=== PATIENT | male | born 1950 | race Caucasian/White ===

== ENCOUNTER 2016-12-24 23:35 | Emergency (ER) | payer SELFPAY ==
--- NOTE | 2016-12-25 01:43 | ED NURSING NOTES ---
Clinical Report - Nurses [facility] [address] [place] [address] 12/24/2016 23:35 Patient: JAMES BEARD TRIAGE Triage time 23:50 Dec 24 2016. Acuity: LEVEL 3. Chief Complaint: CHEST PAIN. --23:51 Micha Catalan R.N. 23:51 12/24/16. BP: 95/49. HR: 51. RR: 18. O2 saturation: 98%. Temp: 97.7 F. Pain level now 07/22. --23:51 Micha Catalan R.N. Weight: 99.7 kg stated. Height/Length: 68 inches Per Patient. BMI: 33.4. --23:51 Micha Catalan R.N. Medications None. --23:50 Micha Catalan R.N. Allergies No Known Drug Allergy. --23:50 Micha Catalan R.N. History Arrived by private vehicle. This started just prior to arrival. Treatment [employer] REPRESENTATIVE: Took ibuprofen. SOCIAL HX: Former smoker. No alcohol use or drug use. --23:51 Micha Catalan R.N. PROBLEMS: Atypical Chest Pain. Anxiety Reaction. Gout. Hypertension. --23:50 Micha Catalan R.N. ADDITIONAL SURGERIES: Appendectomy. Shoulder Surgery. --23:50 Micha Catalan R.N. Interventions ID band on patient. To treatment room. --23:51 Micha Catalan R.N. PHYSICAL ASSESSMENT GENERAL / NEURO / PSYCH: Alert. Oriented X 4. Appears in pain. RESPIRATORY: Respirations not labored. CVS: Normal sinus rhythm noted. GI / : Abdominal tenderness. SKIN: Skin is warm and dry. --23:54 Micha Catalan R.N. NURSING PROGRESS NOTES Pulse oximeter placed on patient. Patient gowned. Call light placed in reach. Side rails up x 1. Bed placed in lowest position. --23:54 Micha Catalan R.N. EKG time: (2343). EKG was performed by a tech and shown to the ED physician. --23:55 Christine Morales 00:18 12/25/2016 Site #1 started via IV in the left antecubital space with an 18g angiocath; one attempt. Blood drawn: rainbow set. Labeled in the presence of the patient. Saline lock flushed with saline. --00:18 Micha Catalan R.N. 00:18 12/25/2016 Started bag #1 1000 mL IV Fluids IV NS (Saline); bolus of 1000 mL wide open via site #1. Allergies verified and confirmed 5 rights. IV patency established. IV site checked: no pain, redness, or swelling. IV flushed thoroughly pre- and post-medication administration. Completed per protocol. --00:18 Micha Catalan R.N. 00:18 12/25/2016 Zofran (Ondansetron HCl) IVP 4 mg given over 2 minute(s) via site #1. Allergies verified and confirmed 5 rights. IV patency established. IV site checked: no pain, redness, or swelling. IV flushed thoroughly pre- and post-medication administration. IVP given by RN. --00:18 Micha Catalan R.N. 00:40 12/25/16. BP: 104/60. HR: 52. O2 saturation: 98%. --00:40 Micha Catalan R.N. 01:13 12/25/16. BP: 102/58. HR: 60. O2 saturation: 100%. --01:13 Micha Catalan R.N. ( pt reports significant decrease in pain in nausea). --01:19 Micha Catalan R.N. 01:27 12/25/2016 IV Fluids IV NS Discontinued: bag #1 infused. Total amount infused: 1000 mL. IV patency established. IV site checked: no pain, redness, or swelling. IV flushed thoroughly. --01:27 Micha Catalan R.N. DISPOSITION / DISCHARGE 00:04 12/25/16. BP: 145/60. HR: 82. RR: 18. O2 saturation: 97%. Temp: 98 F. Pain level now 0/10. --00:06 Micha Catalan R.N. <<STRICKEN ENTRY-- Departure time: 00:06 Dec 25 2016. No learning barriers present. Discharge instructions provided and reviewed with the patient. Reviewed medication(s) side effects information. Patient verbalized understanding. Written instructions provided in Canadian. The patient was discharged by the physician. He was discharged home and accompanied by family. He left the Emergency Department ambulatory and via private vehicle. Family member driving. --00:06 Micha Catalan R.N. --END STRIKE>> Charted On Wrong Patient --00:06 Micha Catalan R.N. 01:53 12/25/16. BP: 103/59. HR: 74. O2 saturation: 97%. --01:54 Micha Catalan R.N. 01:54 12/25/16. RR: 18. Temp: 98 F. Pain level now 0/10. --01:54 Micha Catalan R.N. 01:55 12/25/2016 Site #1 removed upon discharge. Bandage applied. --01:55 Micha Catalan R.N. Departure time: 01:56 Dec 25 2016. Condition at departure: improved. No learning barriers present. Discharge instructions provided and reviewed with the patient. Reviewed medication(s) information. Patient verbalized understanding. Written instructions provided in Canadian. The patient was discharged by the physician. He was discharged home and accompanied by family. He left the Emergency Department ambulatory and via private vehicle. Family member driving. --01:56 Micha Catalan R.N. Locked/Released at 12/25/2016 5:08 by Micha Catalan R.N.
--- NOTE | 2016-12-25 01:43 | ED ORDER SUMMARY ---
..... Patient: JAMES BEARD OrderSheet [facility] VisitID: [id number] [place] [address] 66y, M Registration Date/Time: 12/24/2016 ORDER SHEET Weight: 99.7 kg (stated) Allergies: No Known Drug Allergy GENERAL ORDERS: CBC w Diff Urgent (23:54 12/24/2016 DBeyer R.N. per protocol) (Ack 23:55 SRedmond) (0:09 Leatha Caro) (Cancelled: Physician Order0:09 Leatha Caro) CMP Urgent (23:54 12/24/2016 DBeyer R.N. per protocol) (Ack 23:55 SRedmond) (0:09 Amanuelr ) (Cancelled: Physician Order0:10 Amanuelr ) Cardiac Panel Stat (:12/24/2016 DBeyer R.N. per protocol) (Ack 23:55 SRedmond) (1:04 ALawrence ER Tech1) EKG - ER Stat (23:54 12/24/2016 DBeyer R.N. per protocol) (23:55 SRedmond) BNP Urgent (00:12/25/2016 Leatha Caro) (Ack 0:16 SRedmond) (1:04 ALawrence ER Tech1) MEDICATION ORDERS: IV FLUIDS: IV NS : initial bolus none -, then 1000 mL/hr for X1 (NOW) (00:12/25/2016 Leatha Caro) (0:18 DBeyer R.N.) Zofran IV 4 mg (NOW) (00:11 12/25/2016 Leatha Caro) (0:18 DBeyer R.N.) ORDER SHEET NOTES: [Electronically signed by Joao Olson Dr. (01:55 12/25/2016)] [Electronically signed by Micha Catalan R.N. (05:12/25/2016)] [Electronically locked/signed by Micha Catalan R.N. (05:12/25/2016)]
--- NOTE | 2016-12-25 01:43 | ED CLINICAL REPORT ---
Clinical Report - Physicians/Mid Levels [facility] [address] [place] [place] [address] 12/24/2016 23:35 Patient: JAMES BEARD Time Seen: 2347; initial patient contact. Arrived- By private vehicle. Historian- patient. HISTORY OF PRESENT ILLNESS Chief Complaint: ABDOMINAL PAIN. At its maximum, severity described as moderate. When seen in the E.D., severity described as moderate. Modifying factors. Not worsened by anything. Not relieved by anything. This started today and is still present. It is described as "pain". No radiation. It is described as located in the epigastric area and in the upper abdomen. The patient has had nausea. No vomiting or diarrhea. Similar symptoms previously: None. Recent medical care: Not recently seen/assessed. REVIEW OF SYSTEMS No constipation, hematemesis, difficulty with urination, pain with urination or fever. No chills. All systems otherwise negative, except as recorded above. PAST HISTORY Atypical Chest Pain. Anxiety Reaction. Gout. Hypertension. ADDITIONAL SURGERIES: Appendectomy. Shoulder Surgery. SOCIAL HISTORY Former smoker. No alcohol use or drug use. ADDITIONAL NOTES The nursing notes have been reviewed with agreement regarding the chief complaint, PMH and patient medications and allergies. PHYSICAL EXAM Vital Signs: 12/24/2016 23:51 BP: 95/49. HR: 51. RR: 18. O2 saturation: 98%. Temp: 97.7 F. Have been reviewed. Hypotensive. Bradycardic. Respiratory rate normal. Temperature normal. Oxygen saturation normal. Appearance: Alert. Oriented X3. No acute distress. Eyes: Eyes normal inspection. No scleral icterus or pale conjunctivae. ENT: Dry mucous membranes present. CVS: Bradycardia. Heart sounds normal. Rhythm normal. Respiratory: No respiratory distress. Breath sounds normal. Abdomen: Soft. Moderate tenderness diffusely with guarding present. No rebound tenderness or Rivas's sign present. Bowel sounds normal. No organomegaly. No mass. Back: Normal inspection. No CVA tenderness. Skin: Normal skin color. No rash. Extremities: No lower extremity edema. Neuro: Oriented X 3. LABS, X-RAYS, AND EKG EKG: EKG time: (2343). No acute process. No acute ischemia. Normal EKG. Normal sinus rhythm. Rate: 60. Normal P waves. Normal BOY. Normal QRS complex. Normal axis. Normal ST and T waves, QT and QTc. Prior EKG unavailable. The study has been interpreted contemporaneously by me. The study has been independently viewed by me. The EKG appears to be a good tracing. Interpretation time: 2343. Laboratory Tests: CBC w Diff: (MICHAEL: 12/24/2016 23:42) ( [facility] [place] 12/25/2016 00:16) Final results Test Result Flag Units (Reference) WHITE BLOOD COUNT 13.4 H K/uL (4.5-11.5) RED BLOOD COUNT 3.33 L M/uL (4.50-5.90) HEMOGLOBIN 11.6 L gm/dL (13.5-17.5) HEMATOCRIT 34.3 L % (41.0-53.0) MEAN CELL VOLUME 103 H fL (80-100) MEAN CORPUSCULAR HGB 35 H pg (26-34) MEAN CORPUSCULAR HGB CONC 34 g/dL (31-37) RED CELL DISTRIBUTION WIDTH 15.4 H % (11.6-14.8) PLATELET COUNT 87 L K/uL (150-400) NEUTROPHIL % 81.1 H % (50-75) LYMPH % 11.3 L % (25-40) MONO % 6.5 % (3-14) EOSINOPHIL % 0.9 % (0-4) BASOPHIL % 0.2 % (0-2) CHEM 13 PANEL: (MICHAEL: 12/24/2016 23:42) ( [facility] 12/25/2016 00:23) Final results Test Result Flag Units (Reference) GLUCOSE 136 H mg/dL (70-110) BUN 11 mg/dL (7-18) CREATININE 0.8 mg/dL (0.6-1.3) Estimated GFR >60 mL/min Estimated GFR- >60 mL/min Note: Persistent reduction over 3 months in eGFR<60 mL/min/1.73 m2 defines CKD. Patients with eGFR values>=60 mL/min/1.73 m2 may also have CKD if evidence ofpersistent proteinuria. Additional information may be foundat www.kidney.org. SODIUM 139 mmol/L (136-145) POTASSIUM 3.8 mmol/L (3.5-5.1) CHLORIDE 104 mmol/L (98-107) CARBON DIOXIDE 25 mmol/L (21-32) CALCIUM 8.7 mg/dL (8.5-10.1) TOTAL PROTEIN 6.5 g/dL (6.4-8.2) ALBUMIN 2.9 L g/dL (3.3-5.0) BILIRUBIN, TOTAL 1.4 H mg/dL (0.0-1.0) ALKALINE PHOSPHATASE 167 H U/L (46-116) AST (SGOT) 49 H U/L (15-37) ALT (SGPT) 37 U/L (12-78) CPK 73 U/L (24-260) MAGNESIUM 1.7 L mg/dL (1.8-2.4) TROPONIN I <0.05 ng/mL (0.00-1.5) TROPONIN REFERENCE RANGE:<0.1 NEGATIVE0.1-1.5 INDETERMINANT>1.5 POSITIVE . PROGRESS AND PROCEDURES Course of Care: 05:08. Evaluation after repeat exam, IV fluids and IV antiemetic. The patient's symptoms are now gone. Physical exam findings are improved. Disposition: Discharged home in good and improved condition. Condition: good. CLINICAL IMPRESSION Acute viral gastroenteritis. INSTRUCTIONS Your Current Medications: CONTINUE TAKING THE FOLLOWING MEDICATIONS: None*. Prescription Medications: Bentyl 20 mg tablets: take 1 orally every 6 hours as needed for abdominal cramps or abdominal discomfort. Dispense thirty (30). No refill. Substitution is permissible. Zofran ODT 4 mg: take 1 orally every 6 hours as needed for nausea and vomiting. Dispense ten (10). No refill. Substitution is permissible. Follow-up: Follow up with your doctor in about two days. Call for an appointment. Screening today revealed the patient's blood pressure to be in the normal range. (Electronically signed by Joao Olson Dr. 12/25/2016 1:55)
--- NOTE | 2016-12-25 01:43 | ED ORDER SUMMARY ---
..... Patient: JAMES BEARD OrderSheet [facility] VisitID: [id number] [place] [address] 66y, M Registration Date/Time: 12/24/2016 ORDER SHEET Weight: 99.7 kg (stated) Allergies: No Known Drug Allergy GENERAL ORDERS: CBC w Diff Urgent (23:54 12/24/2016 DBeyer R.N. per protocol) (Ack 23:55 SRedmond) (0:09 Leatha Caro) (Cancelled: Physician Order0:09 Leatha Caro) CMP Urgent (23:54 12/24/2016 DBeyer R.N. per protocol) (Ack 23:55 SRedmond) (0:09 Amanuelr ) (Cancelled: Physician Order0:10 Amanuelr ) Cardiac Panel Stat (:12/24/2016 DBeyer R.N. per protocol) (Ack 23:55 SRedmond) (1:04 ALawrence ER Tech1) EKG - ER Stat (23:54 12/24/2016 DBeyer R.N. per protocol) (23:55 SRedmond) BNP Urgent (00:12/25/2016 Leatha Caro) (Ack 0:16 SRedmond) (1:04 ALawrence ER Tech1) MEDICATION ORDERS: IV FLUIDS: IV NS : initial bolus none -, then 1000 mL/hr for X1 (NOW) (00:12/25/2016 Leatha Caro) (0:18 DBeyer R.N.) Zofran IV 4 mg (NOW) (00:11 12/25/2016 Leatha Caro) (0:18 DBeyer R.N.) ORDER SHEET NOTES: [Electronically signed by Joao Olson Dr. (01:55 12/25/2016)] [Electronically signed by Micha Catalan R.N. (05:12/25/2016)] [Electronically locked/signed by Micha Catalan R.N. (05:12/25/2016)]
--- NOTE | 2016-12-25 05:09 | ED MED RECONCILIATION SUMMARY ---
Patient: JAMES BEARD Medication Reconciliation Report [facility] VisitID: [id number] [place] [address] 66y, M Registration Date/Time: 12/24/2016 Weight: 99.7 kg Height/Length: 68 in. BMI: 33.4 ALLERGIES: No Known Drug Allergy The patient's Home Medications are listed below: NONE. The source(s) of the original Home Medication information: Not obtained. The following Medications were given to the patient in the Emergency Department: IV NS IV Fluids bolus 1000 mL wide open, administered: 12/25/2016 12:18:00 AM Zofran [IVP] IVP 4 mg, administered: 12/25/2016 12:18:00 AM The following Medications were prescribed to the patient: Bentyl 20 mg tablets: take 1 orally every 6 hours as needed for abdominal cramps or abdominal discomfort. Dispense thirty (30). No refill. Substitution is permissible. -- Joao Olson Dr. Zofran ODT 4 mg: take 1 orally every 6 hours as needed for nausea and vomiting. Dispense ten (10). No refill. Substitution is permissible. -- Joao Olson Dr.
--- NOTE | 2016-12-25 05:09 | ED MAR SUMMARY ---
..... Medication Administration Record [facility] [address] [place] [address] Patient: JAMES BEARD Visit ID: [id number] 66y, M Weight: 99.7 kg Height/Length: 68 in BMI: 33.4 ALLERGIES: No Known Drug Allergy Start 00:18 12/25/2016 Micha Catalan R.N., Stop 01:27 12/25/2016 Micha Catalan R.N. Medication Administered: IV NS (SALINE), Dose: IV Fluids, Bolus: 1000 mL wide open, Dispensed: 1000 mL bag, Site: #1 left AC. Medication Ordered: IV NS : initial bolus none -, then 1000 mL/hr for X1 (NOW). Given 00:18 12/25/2016 Micha Catalan R.N. Medication Administered: ZOFRAN [IVP] (ONDANSETRON HCL), Dose: 4 mg IVP over 2 minute(s), Site: #1 left AC. Medication Ordered: Zofran IV 4 mg (NOW).
--- NOTE | 2016-12-25 05:09 | ED DISCHARGE INSTRUCTIONS ---
Patient: JAMES BEARD General Instructions [facility] VisitID: [id number] [place] [address] 66y, M Registration Date/Time: 12/24/2016 Acute viral gastroenteritis. INSTRUCTIONS Your Current Medications: CONTINUE TAKING THE FOLLOWING MEDICATIONS: None*. Prescription Medications: Bentyl 20 mg tablets: take 1 orally every 6 hours as needed for abdominal cramps or abdominal discomfort. Dispense thirty (30). No refill. Substitution is permissible. Zofran ODT 4 mg: take 1 orally every 6 hours as needed for nausea and vomiting. Dispense ten (10). No refill. Substitution is permissible. Follow-up: Follow up with your doctor in about two days. Call for an appointment. Screening today revealed the patient's blood pressure to be in the normal range. ADDITIONAL INFORMATION Viral Gastroenteritis (6Yr-Adult) Gastroenteritis is another name for thestomach flu.It is most often caused by a virus that affects the stomach and intestinal tract. Symptoms include stomach cramping and fever, vomiting and/or diarrhea, and can last from 2 to 7 days. The danger from repeated vomiting or diarrhea is dehydration. This is the loss of too much water and minerals from the body. When this occurs, body fluids must be replaced. Antibiotics are not effective for this illness, but simple home treatment will be helpful. Home Care If symptoms are severe, rest at home for the next 24 hours. Avoid tobacco, caffeine, and alcohol use, which can worsen symptoms. Acetaminophen (Tylenol) or ibuprofen (Motrin, Advil) may be usedfor fever or pain unless another medication was prescribed. NOTE: If you have chronic liver or kidney disease or ever had a stomach ulcer or GI bleeding, talk with your doctor before using these medicines. Aspirin should never be used in anyone under 18 years of age who is ill with a fever. It may cause severe liver damage. If medicines for diarrhea or vomiting were prescribed, be sure they are takenonly as directed. If vomiting, drink small amounts of clear fluids (such as water, sports drinks, clear sodas) at frequent intervals to prevent dehydration. Start with 1 to 2 tablespoons every 10 minutes. Once vomiting stops, follow these guidelines: During The First 12 To 24 Hours follow the diet below: Beverages: Sport drinks like Gatorade, soft drinks without caffeine; qamar margo, mineral water (plain or flavored), decaffeinated tea and coffee. Soups: Clear broth, consomm and bouillon Desserts: Plain gelatin (Jell-O), Popsicles and fruit juice bars. During The Next 24 Hours you may add the following to the above: Hot cereal, plain toast, bread, rolls, crackers Plain noodles, rice, mashed potatoes, chicken noodle or rice soup Unsweetened canned fruit (avoid pineapple), bananas Limit fat intake to less than 15 grams per day by avoiding margarine, butter, oils, mayonnaise, sauces, gravies, fried foods, peanut butter, meat, poultry, and fish. Limit fiber; avoid raw or cooked vegetables, fresh fruits (except bananas), and bran cereals. Limit caffeine and chocolate. Do not use spices or seasonings except salt. During The Next 24 Hours The patient can gradually resume a normal diet as symptoms lessen. Preventing Spread Hand washing with soap and water is the best way to prevent the spread of viruses. Caregivers should wash their hands before andafter touching the sick person. The sick person, as well as everyone in the family,should wash their hands after using the toilet and before meals. Clean the toilet after each use. People with diarrhea should not prepare food for others. If you are preparing your own foods, wash your hands before and after. Follow Up with your doctor as advised. Call your doctor if you are not improving over the next 2 to 3 days. If a stool (diarrhea) sample was taken, you may call in 2 days (or as directed) for the results. Get Prompt Medical Attention if any of the following occur: Increasing abdominal pain Continued vomiting (unable to keep liquids down) Frequent diarrhea (more than 5 times a day) Blood in vomit or stool (black or red color) Dark urine, reduced urine output, or extreme thirst Weakness, dizziness, fainting Drowsiness, confusion, stiff neck, or seizure Fever of 100.4F (38C) oral or higher, not better with fever medication New rash Dicyclomine Hydrochloride Oral tablet What is this medicine? DICYCLOMINE (dye SYE leo maria) is used to treat bowel problems including irritable bowel syndrome. How should I use this medicine? Take this medicine by mouth with a glass of water. Follow the directions on the prescription label. It is best to take this medicine on an empty stomach, 30 minutes to 1 hour before meals. Take your medicine at regular intervals. Do not take your medicine more often than directed. Talk to your general car supervisor yard regarding the use of this medicine in children. Special care may be needed. While this drug may be prescribed for children as young as 6 months of age for selected conditions, precautions do apply. Patients over 65 years old may have a stronger reaction and need a smaller dose. What side effects may I notice from receiving this medicine? Side effects that you should report to your doctor or health landcare facilitator as soon as possible: agitation, nervousness, confusion difficulty swallowing dizziness, drowsiness fast or slow heartbeat hallucinations pain or difficulty passing urine Side effects that usually do not require medical attention (report to your doctor or health landcare facilitator if they continue or are bothersome): constipation headache nausea or vomiting sexual difficulty What may interact with this medicine? amantadine antacids benztropine digoxin disopyramide medicines for allergies, colds and breathing difficulties medicines for alzheimer's disease medicines for anxiety or sleeping problems medicines for depression or psychotic disturbances medicines for diarrhea medicines for pain metoclopramide tegaserod What if I miss a dose? If you miss a dose, take it as soon as you can. If it is almost time for your next dose, take only that dose. Do not take double or extra doses. Where should I keep my medicine? Keep out of the reach of children. Store at room temperature below 30 degrees C (86 degrees F). Protect from light. Throw away any unused medicine after the expiration date. What should I tell my health care provider before I take this medicine? They need to know if you have any of these conditions: difficulty passing urine esophagus problems or heartburn glaucoma heart disease, or previous heart attack myasthenia gravis prostate trouble stomach infection, or obstruction ulcerative colitis an unusual or allergic reaction to dicyclomine, other medicines, foods, dyes, or preservatives or trying to get breast-feeding What should I watch for while using this medicine? You may get drowsy, dizzy, or have blurred vision. Do not drive, use machinery, or do anything that needs mental alertness until you know how this medicine affects you. To reduce the risk of dizzy or fainting spells, do not sit or stand up quickly, especially if you are an older patient. Alcohol can make you more drowsy, avoid alcoholic drinks. Stay out of bright light and wear sunglasses if this medicine makes your eyes more sensitive to light. Avoid extreme heat (hot tubs, saunas). This medicine can cause you to sweat less than normal. Your body temperature could increase to dangerous levels, which may lead to heat stroke. Antacids can stop this medicine from working. If you get an upset stomach and want to take an antacid, make sure there is an interval of at least 1 to 2 hours before or after you take this medicine. Your mouth may get dry. Chewing sugarless gum or sucking hard candy, and drinking plenty of water may help. Contact your doctor if the problem does not go away or is severe. Ondansetron Oral disintegrating tablet What is this medicine? ONDANSETRON (on LEXI se jeny) is used to treat nausea and vomiting caused by chemotherapy. It is also used to prevent or treat nausea and vomiting after surgery. How should I use this medicine? These tablets are made to dissolve in the mouth. Do not try to push the tablet through the foil backing. With dry hands, peel away the foil backing and gently remove the tablet. Place the tablet in the mouth and allow it to dissolve, then swallow. While you may take these tablets with water, it is not necessary to do so. Talk to your general car supervisor yard regarding the use of this medicine in children. Special care may be needed. What side effects may I notice from receiving this medicine? Side effects that you should report to your doctor or health landcare facilitator as soon as possible: allergic reactions like skin rash, itching or hives, swelling of the face, lips, or tongue breathing problems dizziness fast or irregular heartbeat feeling faint or lightheaded, falls fever and chills swelling of the hands and feet tightness in the chest Side effects that usually do not require medical attention (report to your doctor or health landcare facilitator if they continue or are bothersome): constipation or diarrhea headache What may interact with this medicine? Do not take this medicine with any of the following medications: -apomorphine -cisapride -dofetilide -dronedarone -pimozide -thioridazine -ziprasidone This medicine may also interact with the following medications: -carbamazepine -phenytoin -rifampicin -tramadol -other medicines that prolong the QT interval (cause an abnormal heart rhythm) What if I miss a dose? If you miss a dose, take it as soon as you can. If it is almost time for your next dose, take only that dose. Do not take double or extra doses. Where should I keep my medicine? Keep out of the reach of children. Store between 2 and 30 degrees C (36 and 86 degrees F). Throw away any unused medicine after the expiration date. What should I tell my health care provider before I take this medicine? They need to know if you have any of these conditions: heart disease history of irregular heartbeat liver disease low levels of magnesium or potassium in the blood an unusual or allergic reaction to ondansetron, granisetron, other medicines, foods, dyes, or preservatives or trying to get breast-feeding What should I watch for while using this medicine? Check with your doctor or health landcare facilitator as soon as you can if you have any sign of an allergic reaction. You have been given the following additional information: Gastroenteritis, Viral (6Y-Adult) Dicyclomine Hydrochloride Oral tablet Ondansetron Oral disintegrating tablet (Electronically signed by Joao Olson Dr. 12/25/2016 1:55)
--- NOTE | 2016-12-25 05:09 | ED MAR SUMMARY ---
..... Medication Administration Record [facility] [address] [place] [address] Patient: JAMES BEARD Visit ID: [id number] 66y, M Weight: 99.7 kg Height/Length: 68 in BMI: 33.4 ALLERGIES: No Known Drug Allergy Start 00:18 12/25/2016 Micha Catalan R.N., Stop 01:27 12/25/2016 Micha Catalan R.N. Medication Administered: IV NS (SALINE), Dose: IV Fluids, Bolus: 1000 mL wide open, Dispensed: 1000 mL bag, Site: #1 left AC. Medication Ordered: IV NS : initial bolus none -, then 1000 mL/hr for X1 (NOW). Given 00:18 12/25/2016 Micha Catalan R.N. Medication Administered: ZOFRAN [IVP] (ONDANSETRON HCL), Dose: 4 mg IVP over 2 minute(s), Site: #1 left AC. Medication Ordered: Zofran IV 4 mg (NOW).
--- NOTE | 2016-12-25 05:09 | ED MED RECONCILIATION SUMMARY ---
Patient: JAMES BEARD Medication Reconciliation Report [facility] VisitID: [id number] [place] [address] 66y, M Registration Date/Time: 12/24/2016 Weight: 99.7 kg Height/Length: 68 in. BMI: 33.4 ALLERGIES: No Known Drug Allergy The patient's Home Medications are listed below: NONE. The source(s) of the original Home Medication information: Not obtained. The following Medications were given to the patient in the Emergency Department: IV NS IV Fluids bolus 1000 mL wide open, administered: 12/25/2016 12:18:00 AM Zofran [IVP] IVP 4 mg, administered: 12/25/2016 12:18:00 AM The following Medications were prescribed to the patient: Bentyl 20 mg tablets: take 1 orally every 6 hours as needed for abdominal cramps or abdominal discomfort. Dispense thirty (30). No refill. Substitution is permissible. -- Joao Olson Dr. Zofran ODT 4 mg: take 1 orally every 6 hours as needed for nausea and vomiting. Dispense ten (10). No refill. Substitution is permissible. -- Joao Olson Dr.
== END 2016-12-25 01:57 | disposition home or self-care (01) ==
LOC: ED SRH 23:35
DX: A08.4 Viral intestinal infection, unspecified (principal); I10 Essential (primary) hypertension; Z87.891 Personal history of nicotine dependence
CPT/HCPCS: 90100; 90616; 91320; 92610; 92720; 95059

== ENCOUNTER 2017-03-03 20:08 | Emergency (ER) | payer SELFPAY ==
--- NOTE | 2017-03-03 21:21 | ED ORDER SUMMARY ---
..... Patient: JAMES BEARD OrderSheet [facility] VisitID: [id number] [place] [address] 66y, M Registration Date/Time: 03/03/2017 ORDER SHEET Weight: 92.9 kg (stated) Allergies: No Known Drug Allergy GENERAL ORDERS: Finger Right (ring) Urgent (20:26 03/03/2017 Faye Caro) (20:46 MCampbell) Dress Wounds (gauze) (baci) (20:26 03/03/2017 Faye Caro) (20:50 Masoud R.N.) Irrigate Wounds (20:03/03/2017 Faye Caro) (20:49 Masoud R.N.) MEDICATION ORDERS: Gelfoam 1 application (NOW) (20:25 03/03/2017 Faye Caro) (Ack 20:28 ELDAollier R.N.) (20:49 ELDAollier R.N.) IV FLUIDS: ORDER SHEET NOTES: [Electronically signed by Dorita Hamilton R.N. (23:52 03/03/2017)] [Electronically signed by Ish Murillo Dr. (05:01 03/10/2017)] [Electronically locked/signed by Dorita Hamilton R.N. (23:52 03/03/2017)]
--- NOTE | 2017-03-03 21:21 | ED ORDER SUMMARY ---
..... Patient: JAMES BEARD OrderSheet [facility] VisitID: [id number] [place] [address] 66y, M Registration Date/Time: 03/03/2017 ORDER SHEET Weight: 92.9 kg (stated) Allergies: No Known Drug Allergy GENERAL ORDERS: Finger Right (ring) Urgent (20:26 03/03/2017 Faye Caro) (20:46 MCampbell) Dress Wounds (gauze) (baci) (20:26 03/03/2017 Faye Caro) (20:50 Masoud R.N.) Irrigate Wounds (20:03/03/2017 Faye Caro) (20:49 Masoud R.N.) MEDICATION ORDERS: Gelfoam 1 application (NOW) (20:25 03/03/2017 Faye Caro) (Ack 20:28 ELDAollier R.N.) (20:49 ELDAollier R.N.) IV FLUIDS: ORDER SHEET NOTES: [Electronically signed by Dorita Hamilton R.N. (23:52 03/03/2017)] [Electronically signed by Ish Murillo Dr. (05:01 03/10/2017)] [Electronically locked/signed by Dorita Hamilton R.N. (23:52 03/03/2017)]
--- NOTE | 2017-03-03 21:21 | ED NURSING NOTES ---
Clinical Report - Nurs[facility] [address] [place] [address] 03/03/2017 20:08 Patient: JAMES BEARD TRIAGE Triage time 20:09. Acuity: LEVEL 4. Chief Complaint: INJURY TO RIGHT HAND. --20:15 Dorita Hamilton R.N. 20:09 03/03/17. BP: 123/62. HR: 83. RR: 16 (regular and unlabored). O2 saturation: 100% on room air. Temp: 98.1 F (oral). Pain level now: 0/10. --20:15 Dorita Hamilton R.N. Weight: 92.9 kg stated. Height/Length: 69 inches Per Patient. BMI: 30.3. --20:12 Dorita Hamilton R.N. Medications None. --20:11 Dorita Hamilton R.N. Allergies No Known Drug Allergy. --20:11 Dorita Hamilton R.N. History Arrived by EMS. Primary physician (None). ( pt was working on boat, states a piece of wood poked right ring finger and the bleeding wont stop. Pt reports feeling like he might faint. Pt arrives with bandage in place from medics). This occurred today (at 1300). Mechanism of injury: burn. He has had nausea. Treatment CLINICAL EDUCATION COORDINATOR: See EMS report. PAST MEDICAL HX: Immunizations: up-to-date. Tetanus immunization status is not up-to-date. SOCIAL HX: Never smoker. Occasional alcohol use. No drug use. NUTRITIONAL RISK ASSESSMENT: The nutritional risk assessment revealed no deficiencies. FUNCTIONAL ASSESSMENT: Functional assessment: no impairments noted. --20:15 Dorita Hamilton R.N. PROBLEMS: Gastroenteritis. Atypical Chest Pain. Anxiety Reaction. Gout. Hypertension. --20:12 Dorita Hamilton R.N. ADDITIONAL SURGERIES: Appendectomy. Shoulder Surgery. --20:12 Dorita Hamilton R.N. Interventions ID band on patient. To treatment room. --20:15 Dorita Hamilton R.N. PHYSICAL ASSESSMENT To room via stretcher. GENERAL / NEURO / PSYCH: Oriented X 4. Alert. Appears in no acute distress. EXTREMITIES: Capillary refill is less than 2 seconds in the extremities. Right hand. SKIN: Skin is warm and dry. --20:15 Dorita Hamilton R.N. NURSING PROGRESS NOTES Two patient identifiers checked. Call light placed in reach. Side rails up x 1. Bed placed in lowest position. Brakes of bed on. --20:15 Dorita Hamilton R.N. Patient ready for evaluation- chart flagged. --20:15 Dorita Hamilton R.N. ( right ring finger irrigated with 500ml of NS. Bleeding continues. GELFOAM placed on wound with bulky gauze, held in place with tape and Coban.). --20:40 Dorita Hamilton R.N. Portable right hand x-ray performed. --20:40 Dorita Hamilton R.N. 20:39 03/03/2017 GELFOAM Topical Topical Solution 1 application. Secured with tape. Allergies verified and confirmed 5 rights. --20:49 Dorita Hamilton R.N. DISPOSITION / DISCHARGE 21:42 03/03/17. BP: 117/66. HR: 76. RR: 15. O2 saturation: 98% on room air. Pain level now: 0/10. --21:43 Dorita Hamilton R.N. Condition at departure: improved and stable. --21:43 Dorita Hamilton R.N. No learning barriers present. Discharge instructions provided and reviewed with the patient. Patient verbalized understanding. Written instructions provided in Sierra Leonean. The patient was discharged home and accompanied by dial screw assembler. He left the Emergency Department ambulatory and via private vehicle. Photovoltaic Solar Cell Designer driving. --21:48 Dorita Hamilton R.N. Locked/Released at 03/03/2017 23:52 by Dorita Hamilton R.N.
--- NOTE | 2017-03-03 21:21 | ED NURSING NOTES ---
Clinical Report - Nurses [facility] [address] [place] [address] 03/03/2017 20:08 Patient: JAMES BEARD TRIAGE Triage time 20:09. Acuity: LEVEL 4. Chief Complaint: INJURY TO RIGHT HAND. --20:15 Dorita Hamilton R.N. 20:09 03/03/17. BP: 123/62. HR: 83. RR: 16 (regular and unlabored). O2 saturation: 100% on room air. Temp: 98.1 F (oral). Pain level now: 0/10. --20:15 Dorita Hamilton R.N. Weight: 92.9 kg stated. Height/Length: 69 inches Per Patient. BMI: 30.3. --20:12 Dorita Hamilton R.N. Medications None. --20:11 Dorita Hamilton R.N. Allergies No Known Drug Allergy. --20:11 Dorita Hamilton R.N. History Arrived by EMS. Primary physician (None). ( pt was working on boat, states a piece of wood poked right ring finger and the bleeding wont stop. Pt reports feeling like he might faint. Pt arrives with bandage in place from medics). This occurred today (at 1300). Mechanism of injury: burn. He has had nausea. Treatment SIGNAL APPRENTICE: See EMS report. PAST MEDICAL HX: Immunizations: up-to-date. Tetanus immunization status is not up-to-date. SOCIAL HX: Never smoker. Occasional alcohol use. No drug use. NUTRITIONAL RISK ASSESSMENT: The nutritional risk assessment revealed no deficiencies. FUNCTIONAL ASSESSMENT: Functional assessment: no impairments noted. --20:15 Dorita Hamilton R.N. PROBLEMS: Gastroenteritis. Atypical Chest Pain. Anxiety Reaction. Gout. Hypertension. --20:12 Dorita Hamilton R.N. ADDITIONAL SURGERIES: Appendectomy. Shoulder Surgery. --20:12 Dorita Hamilton R.N. Interventions ID band on patient. To treatment room. --20:15 Dorita Hamilton R.N. PHYSICAL ASSESSMENT To room via stretcher. GENERAL / NEURO / PSYCH: Oriented X 4. Alert. Appears in no acute distress. EXTREMITIES: Capillary refill is less than 2 seconds in the extremities. Right hand. SKIN: Skin is warm and dry. --20:15 Dorita Hamilton R.N. NURSING PROGRESS NOTES Two patient identifiers checked. Call light placed in reach. Side rails up x 1. Bed placed in lowest position. Brakes of bed on. --20:15 Dorita Hamilton R.N. Patient ready for evaluation- chart flagged. --20:15 Dorita Hamilton R.N. ( right ring finger irrigated with 500ml of NS. Bleeding continues. GELFOAM placed on wound with bulky gauze, held in place with tape and Coban.). --20:40 Dorita Hamilton R.N. Portable right hand x-ray performed. --20:40 Dorita Hamilton R.N. 20:39 03/03/2017 GELFOAM Topical Topical Solution 1 application. Secured with tape. Allergies verified and confirmed 5 rights. --20:49 Doriat Hamilton R.N. DISPOSITION / DISCHARGE 21:42 03/03/17. BP: 117/66. HR: 76. RR: 15. O2 saturation: 98% on room air. Pain level now: 0/10. --21:43 Dorita Hamilton R.N. Condition at departure: improved and stable. --21:43 Dorita Hamilton R.N. No learning barriers present. Discharge instructions provided and reviewed with the patient. Patient verbalized understanding. Written instructions provided in Bruneian. The patient was discharged home and accompanied by contact center representative. He left the Emergency Department ambulatory and via private vehicle. Produce Production Team Member driving. --21:48 Dorita Hamilton R.N. Locked/Released at 03/03/2017 23:52 by Dorita Hamilton R.N.
--- NOTE | 2017-03-03 21:21 | ED CLINICAL REPORT ---
Clinical Report - Physicians/Mid Levels [facility] [address] [place] [address] 03/03/2017 20:08 Patient: JAMES BEARD Time Seen: 2020. Arrived- By private vehicle. Historian- patient. HISTORY OF PRESENT ILLNESS Chief Complaint: Injury to the right ring finger. The injury happened today. (puncture wound). (on his boad). Patient is experiencing moderate pain. Patient denies injury to the head. No other injury. REVIEW OF SYSTEMS The patient sustained a laceration. No tingling, numbness, weakness or foreign body. PAST HISTORY See nurses notes. Tetanus immunization status is up-to-date. Medications: None. Allergies: No Known Drug Allergy. SOCIAL HISTORY Never smoker. Occasional alcohol use. No drug use. No recent travel. Is a local resident. PHYSICAL EXAM Appearance: Alert. Oriented X3. No acute distress. Head: Head atraumatic. Eyes: Pupils equal, round and reactive to light. Eyes normal inspection. ENT: Ears normal. Nose normal. Pharynx normal. Neck: Normal inspection. Neck supple. C-spine non-tender. CVS: Normal heart rate and rhythm. Heart sounds normal. Pulses normal. Respiratory: No respiratory distress. Breath sounds normal. Chest nontender. Abdomen: No visible injury. Soft and nontender. Bowel sounds normal. Back: No tenderness. Normal inspection. ROM normal. Skin: Skin warm and dry. Skin intact. Extremities: (small < 0.5 cm wound to the right distal ring finger. no fb noted. bleeding controlled. neurovasc intact. no other signs of trauma or injury.). Extremities otherwise negative. Neuro, Vascular and Tendons: Vascular status intact. Sensation intact. Motor intact. Tendon function intact. LABS, X-RAYS, AND EKG Rt UE Digits X-ray: (PROCEDURE: XR FINGER - RIGHT INDICATION: TRAUMA/INJURY TECHNIQUE: A P hand and two views of the right fourth digit. COMPARISON: None. FINDINGS: No fracture or dislocation. Soft tissue swelling of the tip of fourth finger but no radiopaque foreign body. There is a punctate radiopaque foreign body on the radial aspect of the fifth proximal phalanx. IMPRESSION: 1. Right fourth finger soft tissue swelling.). The X-rays were independently viewed by me and interpreted by the radiologist. The X-rays were discussed with the radiologist (via pacs). PROGRESS AND PROCEDURES Course of Care: the patient is a pleasant 66-year-old male with no pertinent past medical history presenting for evaluation of injury to the right ring finger. Patient is reporting a mild amount of bleeding. No active bleeding noted here in the emergency department. Tetanus is up-to-date. We'll be evaluating with radiographs for any radiopaque foreign bodies left in the wound after the reported injury. Patient is also reporting a moderate amount of bleeding, or have Gelfoam applied to help with the control of bleeding reported by patient. Regress do not show any signs of rate opaque foreign body. No other acute abnormalities noted. Bleeding is being controlled here in the emergency department. Wound infection risks provided. Had a discussion with the patient in regards his workup here in the emergency Department to continue diagnosis, home care, follow-up, and return precautions. All questions have been answered. The patient expressed understanding of these instructions and was agreeable to them. Finger remains neurovascularly intact. Bleeding is controlled. No other abnormalities noted. Of note, patient was trying to get his boat ready in anticipation for the fishing season. 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 Disposition: Discharged. Condition: good. CLINICAL IMPRESSION 03/03/2017 20:09 BP: 123/62. HR: 83. RR: 16. O2 saturation: 100%. Temp: 98.1 F. Pain level now: 0/10. Blood pressure normal. Oxygen saturation normal. Single deep puncture wound to the right 4th toe. No puncture wound with foreign body present. INSTRUCTIONS Warnings: GENERAL WARNINGS: Return or contact your physician immediately if your condition worsens or changes unexpectedly, if not improving as expected, or if other problems arise. Specifically return if pain, vomiting, bleeding, breathing difficulty or fever. Your Current Medications: CONTINUE TAKING THE FOLLOWING MEDICATIONS: None*. OTC Medications: Acetaminophen (available over the counter): take according to label instructions. Motrin (available over the counter): take according to label instructions. Follow-up: Return to the emergency department as needed. Follow up with your doctor in three days. Reason for referral: recheck today's concerns. Summary of care provided to patient via paper. Screening today revealed the patient's blood pressure to be in the normal range. The patient should follow up with a primary care provider for blood pressure management. Understanding of the discharge instructions verbalized by patient. (Electronically signed by Ish Murillo Dr. 03/10/2017 5:01)
--- NOTE | 2017-03-03 21:27 | DIAGNOSTIC IMAGING REPORT ---
PROCEDURE: XR FINGER - RIGHT INDICATION: TRAUMA/INJURY TECHNIQUE: A P hand and two views of the right fourth digit. COMPARISON: None. FINDINGS: No fracture or dislocation. Soft tissue swelling of the tip of fourth finger but no radiopaque foreign body. There is a punctate radiopaque foreign body on the radial aspect of the fifth proximal phalanx. IMPRESSION: 1. Right fourth finger soft tissue swelling.
--- NOTE | 2017-03-10 05:02 | ED DISCHARGE INSTRUCTIONS ---
Patient: JAMES BEARD General Instructions [facility] VisitID: [id number] [place] [address] 66y, M Registration Date/Time: 03/03/2017 03/03/2017 20:09 BP: 123/62. HR: 83. RR: 16. O2 saturation: 100%. Temp: 98.1 F. Pain level now: 0/10. Blood pressure normal. Oxygen saturation normal. Single deep puncture wound to the right 4th toe. No puncture wound with foreign body present. INSTRUCTIONS Warnings: GENERAL WARNINGS: Return or contact your physician immediately if your condition worsens or changes unexpectedly, if not improving as expected, or if other problems arise. Specifically return if pain, vomiting, bleeding, breathing difficulty or fever. Your Current Medications: CONTINUE TAKING THE FOLLOWING MEDICATIONS: None*. OTC Medications: Acetaminophen (available over the counter): take according to label instructions. Motrin (available over the counter): take according to label instructions. Follow-up: Return to the emergency department as needed. Follow up with your doctor in three days. Reason for referral: recheck today's concerns. Summary of care provided to patient via paper. Screening today revealed the patient's blood pressure to be in the normal range. The patient should follow up with a primary care provider for blood pressure management. Understanding of the discharge instructions verbalized by patient. ADDITIONAL INFORMATION Puncture Wound (General) A puncture wound is a hole through the skin. Bacteria, dirt and debris can be drawn into this wound, increasing the risk of infection. However, antibiotics are usually not prescribed for this injury unless signs of infection are already present. Therefore, it is important to observe the wound closely for the signs of infection listed below. Home Care: If your wound is on an arm, hand, leg, or foot, keep that part raised during the first 48 hours to reduce swelling and pain. Keep the wound clean and dry. If a bandage was applied and it becomes wet or dirty, replace it. Otherwise, leave it in place for the next 24 hours. You may use acetaminophen (Tylenol) or ibuprofen (Motrin, Advil) to control pain, unless another medicine was prescribed. [NOTE: If you have chronic liver or kidney disease or ever had a stomach ulcer or GI bleeding, talk with your doctor before using these medicines.] You may shower as usual. However, do not soak the area in water (no baths or swimming) during the first 48 hours. Follow Up: Most puncture wounds heal within 10 days. However, an infection may sometimes occur despite proper treatment. If small particles were drawn into the puncture wound (such as fragments of cloth, rubber, wood or dirt), an infection may occur. These fragments are very hard to find during the first exam since it is not possible to get a good look inside a puncture wound and they do not show on an X-ray. Antibiotics and a minor surgical procedure to find and remove the foreign object will be needed if this happens. Therefore, check the wound daily for the warning signs listed below. Get Prompt Medical Attention if any of the following occur: SIGNS OF INFECTION: Increasing pain in the wound Redness, swelling, pus or red lines coming from the wound Fever of 100.4F (38C) or higher, or as directed by your healthcare provider You have been given the following additional information: Puncture Wound, General (Electronically signed by Ish Murillo Dr. 03/10/2017 5:01)
--- NOTE | 2017-03-10 05:02 | ED MED RECONCILIATION SUMMARY ---
Patient: JAMES BEARD Medication Reconciliation Report [facility] VisitID: [id number] [address] [place] [address] 66y, M Registration Date/Time: 03/03/2017 Weight: 92.9 kg Height/Length: 69 in. BMI: 30.3 ALLERGIES: No Known Drug Allergy The patient's Home Medications are listed below: NONE. The source(s) of the original Home Medication information: Not obtained. The following Medications were given to the patient in the Emergency Department: GELFOAM Topical 1 application, administered: 03/03/2017 8:39:00 PM The following Medications were prescribed to the patient: Acetaminophen (available over the counter): take according to label instructions. -- Ish Murillo Dr. Motrin (available over the counter): take according to label instructions. -- Ish Murillo Dr.
--- NOTE | 2017-03-10 05:02 | ED MAR SUMMARY ---
..... Medication Administration Record [facility] [address] [place] [address] Patient: JAMES BEARD Visit ID: [id number] 66y, M Weight: 92.9 kg Height/Length: 69 in BMI: 30.3 ALLERGIES: No Known Drug Allergy Given 20:39 03/03/2017 Dorita Hamilton R.N. Medication Administered: GELFOAM, Dose: 1 application Topical Solution Topical. Medication Ordered: Gelfoam 1 application (NOW).
--- NOTE | 2017-03-10 05:02 | ED MAR SUMMARY ---
..... Medication Administration Record [facility] [address] [place] [address] Patient: JAMES BEARD Visit ID: [id number] 66y, M Weight: 92.9 kg Height/Length: 69 in BMI: 30.3 ALLERGIES: No Known Drug Allergy Given 20:39 03/03/2017 Dorita Hamilton R.N. Medication Administered: GELFOAM, Dose: 1 application Topical Solution Topical. Medication Ordered: Gelfoam 1 application (NOW).
--- NOTE | 2017-03-10 05:02 | ED MED RECONCILIATION SUMMARY ---
Patient: JAMES BEARD Medication Reconciliation Report [facility] VisitID: [id number] [address] [place] [address] 66y, M Registration Date/Time: 03/03/2017 Weight: 92.9 kg Height/Length: 69 in. BMI: 30.3 ALLERGIES: No Known Drug Allergy The patient's Home Medications are listed below: NONE. The source(s) of the original Home Medication information: Not obtained. The following Medications were given to the patient in the Emergency Department: GELFOAM Topical 1 application, administered: 03/03/2017 8:39:00 PM The following Medications were prescribed to the patient: Acetaminophen (available over the counter): take according to label instructions. -- Ish Murillo Dr. Motrin (available over the counter): take according to label instructions. -- Ish Murillo Dr.
== END 2017-03-03 21:49 | disposition home or self-care (01) ==
LOC: ED SRH 20:08
DX: S61.234A Puncture wound without foreign body of right ring finger without damage to nail, initial encounter (principal); W45.8XXA Other foreign body or object entering through skin, initial encounter; Y93.9 Activity, unspecified; Y99.9 Unspecified external cause status; Y92.814 Boat as the place of occurrence of the external cause